=== PATIENT | female | born 1950 | race Caucasian/White ===

== ENCOUNTER → 2016-11-15 | Outpatient (CLI) | payer BC, OTHER ==
[2010-10-19 09:11] VITALS: BP 119/55
[2016-11-15 11:52] LABS: CLARITY,URINE CLEAR (CLEAR); COLOR,URINE YELLOW; PROTEIN,URINE TRACE mg/dl (NEG); URINE SAMPLE TYPE CLEAN CATCH URINE
[2016-11-15 11:53] LABS: BILIRUBIN,URINE NEGATIVE (NEG); GLUCOSE, URINE (UA) NEGATIVE (NEG); NITRATE,URINE NEGATIVE (NEG); OCCULT BLOOD,URINE TRACE (NEG); RBC,URINE 0 /hpf; SQUAMOUS EPITHELIAL CELL,UR FEW; UROBILINOGEN,URINE 0.2 mg/dL (0.2); WBC,URINE 0-1
== END ==
LOC: LAB 10:58
PROVIDERS: ATTEND Internal Medicine
DX: I10 Essential (primary) hypertension (principal); Z90.5 Acquired absence of kidney
CPT/HCPCS: 81001